=== PATIENT | female | born 1995 | race Caucasian/White ===

== ENCOUNTER 2016-10-08 10:49 | Emergency (ER) | payer SELFPAY ==
[~2016-10-08] VITALS: Ht 170.2 cm; Wt 122.5 kg
[2016-10-08 11:04] VITALS: BP 111/81
--- NOTE | 2016-10-08 11:18 | NUR ---
PT TAKEN TO BED 6 AT THIS TIME
--- NOTE | 2016-10-08 11:20 | NUR ---
21/F BIB SELF C/O FREQUENCY URINATING & LOWER BACK PAIN X 1 WK. PT DENIES N/V/D; SKIN IS PINK/WARM/DRY; AAOX4 WITH EVEN AND STEADY GAIT; LUNGS CLEAR BL; HR EVEN AND REGULAR; PT DENIES ANY FEVER, CP, SOB, OR COUGH AT THIS TIME; PATIENT STATES PAIN OF 10/10 AT THIS TIME; VSS; PATIENT POSITIONED FOR COMFORT; HOB ELEVATED; BEDRAILS UP X2; BED DOWN. ER MD MADE AWARE OF PT STATUS.
--- NOTE | 2016-10-08 11:24 | NUR ---
Dr. Edmonds evaluating patient at bedside.
[2016-10-08] MEDS ORDERED: ACETAMINOPHEN EXTRA STRENGTH 500 MG TAB PO ONE (11:30)
[2016-10-08] MEDS ORDERED: IBUPROFEN 800 MG TAB PO ONE (11:30)
[2016-10-08] MEDS ORDERED: NACL 0.9% 1,000 ML IV ONE (11:30)
[2016-10-08] MEDS ORDERED: MORPHINE SULFATE 2 MG/ML SYR IVP ONE (11:35)
--- NOTE | 2016-10-08 11:40 | NUR ---
TYLENOL EXTRA STRENGTH 1000 MG PO GIVEN AT 11.40 AM
--- NOTE | 2016-10-08 12:50 | NUR ---
PT TAKEN TO CT VIA W/C ACCOMPANIED BY IMPLEMENTATION TECHNICIAN
[2016-10-08 14:17] VITALS: BP 118/79
--- NOTE | 2016-10-08 14:17 | NUR ---
Patient discharged with v/s stable. Written and verbal after care instructions given and explained. Patient alert, oriented and verbalized understanding of instructions. Ambulatory with steady gait. All questions addressed prior to discharge. ID band removed. Patient advised to follow up with PMD. Rx of CIPROFLOXACIN HYDROCHLORIDE given. Patient educated on indication of medication including possible reaction and side effects. Opportunity to ask questions provided and answered.
== END 2016-10-08 14:17 | disposition home or self-care (01) ==
LOC: MED 10:49
DX: N39.0 Urinary tract infection, site not specified (principal); F17.210 Nicotine dependence, cigarettes, uncomplicated; Z71.6 Tobacco abuse counseling
CPT/HCPCS: 36415; 74176; 80053; 81001; 81025; 83690; 85025; 87086; 96361; 96374; 99285; J2270; J7030